=== PATIENT | female | born 1980 | race Two or more races ===

== ENCOUNTER 2023-11-06 21:09 | Emergency (ER) | payer OTHER ==
[~2023-11-06] VITALS: Ht 154.9 cm; Wt 68.0 kg
[2023-11-06] MEDS ORDERED: METHYLPREDNISOLONE SOD SUCC 125 MG VIAL IV ONE (22:15)
[2023-11-06] MEDS ORDERED: HYDROCODONE/CHLORPHEN P-STIREX 5 ML ML PO ONE (22:15)
[2023-11-06] MEDS ORDERED: LEVALBUTEROL HCL 1.25 MG/3 ML SOLUTION IH SCH (22:30)
[2023-11-06 23:03] LABS: HEMATOCRIT 31.9 % (36.0-45.00); HEMOGLOBIN 10.7 g/dL (12.0-15.00); MEAN CELL VOLUME 90.7 fL (80.00-100.00); MEAN CORPUSCULAR HEMOGLOBIN 30.4 pg (27.00-32.0); MEAN CORPUSCULAR HGB CONC 33.6 g/dl (32.0-36.0); PLATELET COUNT 469 K/uL (150-450); RED BLOOD COUNT 3.52 M/uL (4.00-6.00); RED CELL DISTRIBUTION WIDTH 13.8 % (11.5-14.5)
[2023-11-06] MEDS ORDERED: SINGULAIR10 MG PO (23:32)
[2023-11-06] MEDS ORDERED: ZITHROMAX500 MG PO (23:32)
[2023-11-06] MEDS ORDERED: TUSNEL LIQUID178 ML PO (23:32)
[2023-11-06] MEDS ORDERED: BENZONATATE150 MG PO (23:32)
== END 2023-11-07 00:56 | disposition home or self-care (01) ==
LOC: ER 21:10
PROVIDERS: General Practice
DX: R53.81 Other malaise (principal); J45.909 Unspecified asthma, uncomplicated